=== PATIENT | male | born 1965 | race African-American/Black ===

== ENCOUNTER → 2023-01-05 | Emergency (ER) | payer OTHER ==
[~2023-01-05] VITALS: Ht 167.6 cm; Wt 72.6 kg
[~2023-01-05] MED LIST: BENADRYL50 MG PO; DEPAKOTE ER250 MG PO; PYRIDIUM100 M1 PO; RISPERDAL2 MG PO; SEPTRA DS TABLE1 TAB PO; VISTARIL25 MG PO
== END | disposition left against medical advice (07) ==
LOC: ER 14:16 → EMR PED 14:20 → ER 14:20
DX: Z53.21 Procedure and treatment not carried out due to patient leaving prior to being seen by health care provider (principal)

== ENCOUNTER 2023-08-01 10:47 | Emergency (ER) | payer OTHER ==
[~2023-08-01] VITALS: Ht 167.6 cm; Wt 86.2 kg
[2023-08-01] MEDS ORDERED: SEROQUEL200 MG PO (12:12)
[2023-08-01 13:21] LABS: HEMATOCRIT 46.5 % (39.0-48.0); HEMOGLOBIN 15.4 g/dL (13-16.00); MEAN CELL VOLUME 98.1 fL (80.0-100.00); MEAN CORPUSCULAR HEMOGLOBIN 32.5 pg (27.00-32.0); MEAN CORPUSCULAR HGB CONC 33.1 g/dl (32.0-36.0); PLATELET COUNT 438 K/uL (150-450); RED BLOOD COUNT 4.74 M/uL (4.00-6.00); RED CELL DISTRIBUTION WIDTH 14.1 % (11.5-14.5)
[2023-08-01 14:10] LABS: ALBUMIN 3.7 gm/dL (3.4-5.0); BILIRUBIN TOTAL 0.45 mg/dL (0.3-1.2); CALCIUM 9.4 mg/dL (8.5-10.1); CREATININE SERUM 0.85 mg/dL (0.70-1.30); GFR 93.24; GLOBULINA 4.2 G/DL (2.4-3.5); POTASSIUM 3.86 mEq/L (3.5-5.1); TOTAL PROTEIN 7.9 gm/dL (6.4-8.2)
[2023-08-01] MEDS ORDERED: TUSNEL LIQUID178 ML PO (15:17)
[2023-08-01] MEDS ORDERED: ZITHROMAX500 MG PO (15:17)
== END 2023-08-01 15:22 | disposition home or self-care (01) ==
LOC: ER 10:47
PROVIDERS: General Practice
DX: B34.9 Viral infection, unspecified (principal); Z20.822 Contact with and (suspected) exposure to COVID-19; R42 Dizziness and giddiness

== ENCOUNTER 2023-08-04 17:30 | Emergency (ER) | payer OTHER ==
[~2023-08-04] VITALS: Ht 165.1 cm; Wt 80.7 kg
[~2023-08-04 17:30] MED LIST changes: +SEROQUEL200 MG PO; +TUSNEL LIQUID178 ML PO; +ZITHROMAX500 MG PO
== END 2023-08-04 19:41 | disposition home or self-care (01) ==
LOC: ER 17:30
DX: M79.605 Pain in left leg (principal)